=== PATIENT | male | born 1940 | race Caucasian/White ===

== ENCOUNTER 2020-11-26 12:21 | Outpatient (CLI) | payer MEDICARE, BC | END 2020-11-26 12:22 | disposition home or self-care (01) | LOC: CSHCT 12:21 | PROVIDERS: ATTEND Internal Medicine Hematology & Oncology | DX: C25.0 Malignant neoplasm of head of pancreas (principal); K86.81 Exocrine pancreatic insufficiency; Z96.89 Presence of other specified functional implants; E04.1 Nontoxic single thyroid nodule; K76.9 Liver disease, unspecified; Z95.4 Presence of other heart-valve replacement; R18.8 Other ascites | CPT/HCPCS: 71260 ==